=== PATIENT | male | born 1965 | race Caucasian/White ===

== ENCOUNTER 2018-09-13 05:59 | Day surgery (SDC) | payer OTHER ==
[2018-09-13] MEDS ORDERED: FENTAnyl 50 MCG/ML VIAL (08:34)
[2018-09-13] MEDS ORDERED: MIDAZOLAM 1 MG/ML 2 ML INJ ×2 (08:34)
== END 2018-09-13 12:13 | disposition home or self-care (01) ==
LOC: GIL 05:59
DX: Z12.11 Encounter for screening for malignant neoplasm of colon (principal); K64.8 Other hemorrhoids; K62.89 Other specified diseases of anus and rectum; K44.9 Diaphragmatic hernia without obstruction or gangrene; K20.9 Esophagitis, unspecified; K29.30 Chronic superficial gastritis without bleeding
CPT/HCPCS: 43239; 88305; 88312